=== PATIENT | female | born 1990 | race Caucasian/White ===

== ENCOUNTER 2024-10-15 21:21 | Emergency (ER) | payer MEDICAID, SELFPAY ==
--- OUTSIDE RECORDS SUMMARY | 2024-10-15 21:24 | XMS_ITS | Clinical Summary ---
Author Organization [facility] Address [place], [place] [address] Care Team Providers Care Operations Welder Name Role Phone Chio Husain MD Primary Care Provider Janeth Duong Gmitro MANAGER PHARMACY Unavailable [phone] Unavailable [phone] Allergies Active Allergy Reactions Criticality Noted Date Comments Amoxicillin 05/09/2007 Methylprednisolone Rash 06/13/2011 Sulfa (Sulfonamide Antibiotics) Rash 10/11 Azithromycin Hives 06/13/2011 Medications sertraline (ZOLOFT) 100 mg tabletIndications :Depression, major, single episode, moderate (HC),Anxiety Take 2 Tablets (200 mg) by mouth once daily. 200 Tablet 3 07/23/20 24 Active norgestimate-ethi nyl estradioL (Tri-Sprintec) 0.18/0.215/0.25 mg-35 mcg (28) tabletIndications :Encounter for contraceptive management, unspecified type,Irregular menses Take 1 Tablet by mouth once daily. 84 Tablet 4 07/23/20 24 Active valACYclovir (Valtrex) 500 mg tabletIndications :HSV-2 infection Take 1 Tablet (500 mg) by mouth once daily. 100 Tablet 3 07/23/20 24 Active losartan (COZAAR) 50 mg tabletIndications :HTN (hypertension) Take 1 Tablet (50 mg) by mouth once daily. 30 Tablet 09/30/19 25 Active albuterol HFA (PRO-AIR; VENTOLIN; PROVENTIL) 90 mcg/actuation inhalerIndication s:Cough, unspecified type,Mild asthma with exacerbation, unspecified whether persistent Inhale 1-2 Puffs by mouth every 4 hours if needed for Shortness Of Breath or Wheezing. 1 Each 10/08/19 25 Active losartan (COZAAR) 25 mg tabletIndications :HTN (hypertension) Take 1 Tablet (25 mg) by mouth once daily. 30 Tablet 08/28/20 24 025 Discontinu ed(*Medica tion adjustment ) oseltamivir (TAMIFLU) 75 mg capsuleIndication s:Influenza-like illness,Fever, unspecified fever cause,Cough, unspecified type Take 1 Capsule (75 mg) by mouth two times daily for 5 days. 10 Capsule 10/08/19 25 025 predniSONE (DELTASONE) 20 mg tabletIndications :Cough, unspecified type,Mild asthma with exacerbation, unspecified whether persistent Take 1 Tablet (20 mg) by mouth once daily for 5 days. 5 Tablet 10/08/19 25 025 Active Problems Problem Noted Date Diagnosed Date HTN (hypertension) 08/28/2024 Depression, recurrent 04/27/2024 Anxiety 04/27/2024 Herpes simplex infection of perianal skin 2022 Other acne 04/02/2008 DILMA I (cervical intraepithelial neoplasia I) Overview (07/30/2024): 07/2010 ASCUS/HPV+ 07/2010 [place]: Biopsy DILMA 1, ECC Negative 09/2011 ASCUS/HPV+ 12/2011 [place]: Biopsy DILMA 1, ECC DILMA 1 05/2012 NIL 12/2012 LSIL 04/2014 ASCUS/HPV+ 09/2015 ASCUS/HPV+ 10/2016 ASCUS/HPV+ 03/2017 [place]: ECC Benign 12/2018 ASCUS/HPV+ 03/2020 ASCUS/HPV+ 04/2021 LSIL/HPV+, HPV 16/18 negative 02/2022 [place]: Biopsy DILMA 1, ECC Benign 09/2022 ASCUS/HPV+, HPV 16/18 negative 01/2023 [place]: DILMA 1, ECC Benign 07/2024 NIL/HPV negative. Plan: Pap/HPV due 07/2025. Resolved Problems Problem Noted Date Diagnosed Date Resolved Date Bacterial vaginal infection 11/07/2016 10/09/2022 Overview (11/15/2016): 11/2016: treated Depression with anxiety 11/02/201604/09 Low grade squamous intraepit helial lesion on cytologic smear of cervix (LGSIL) 12/17/20122019 Overview (11/12/2016): 12/17/2012: LSIL (age 22) Vaginal Pap smear with LGSIL 07/10/2010 11/12/2016 Overview (08/08/2010): colp Encounters Date Type Department Care Team Description 10/08/2024 9:55 AM FIELD SALES CONSULTANT Telemedicine [facility] [address] [place] [address] Lauren Ulrich NP Telehealth; Sinus Problem 10/08/2024 Travel 10/07/2024 Travel 10/04/2024 Travel 09/30/2024 1:40 PM FIELD SALES CONSULTANT Office Visit [facility] [address] [place] [address] Chio Husain MD Blood Pressure 09/30/2024 Refill [facility] [address] [place] [address] Chio Husain MD Refill Request (Losartan) 09/30/2024 Travel 09/28/2024 Travel 09/27/2024 Refill [facility] [address] [place] [address] Chio Husain MD Refill Request (Losartan) 09/24/2024 Travel 09/13/2024 Travel 08/28/2024 E-Visit [facility] [address] [place] [address] Chio Husain MD Blood pressure 08/02/2024 Travel 07/25/2024 Refill [facility] [address] [place] [address] Chio Husain MD Refill Request (Sertraline) 07/23/2024 2:00 PM FIELD SALES CONSULTANT Office Visit [facility] [address] [place] [address] Chio Husain MD Physical (With pap); Medication Management 07/23/2024 Travel 07/20/2024 Travel 07/19/2024 Refill [facility] [address] [place] [address] Chio Husain MD Refill Request (Tri-sprintec) from Last 3 Months Immunizations Name Administration Dates Next Due AMB Influenza, IIV3 (Age >=3 years)(Flu Clinic Only) 06/19/2013 AMB Influenza, IIV4 PF (=>6 mos Flulaval,Fluzone Fluarix)(Flu Clinic Only) 06/12/2014 DTP 09/14/1992, 0,1988,09/27,1988 HIB HbOC (HibTITER) 01/22/1990 Hepatitis B (Peds) 06/29/1998,11/24/1997, 997 Human Papilloma Virus Vaccine 04/12/2008, 008,08/07/2007 10/07/2007 Influenza A (H1N1), Inactiva gokul (Age >=3 Years) 08/19/2009 Influenza Virus, Unspecified 06/16/2015 Influenza, IIV3 (Age >=3 years) 08/01/20 11,07/11/2010,08/19/2009,07/21,08/07/2007 Influenza, IIV4 06/22/2019, 8,07/01/2017,07/05 Influenza,CCIIV4 PRESERV FREE 06/11/2020 MMR 04/22/2000,11/20/1989 Oral Polio Vaccine 09/14/1992, 0,1988,07/31 Td (Age >=7 Years) 04/22/2000 Tdap 08/08/2017,10/05/2008 Tuberculin (PPD) 04/21/2013 Family History Medical History Relation Name Comments Anxiety disorder Brother Jeremias Depression Brother Jeremias No Known Problems Daughter Natalie Anxiety disorder Father Hao hooper Depression Father Hao hooper Anxiety disorder Mother Lilly hooper Depression Mother Lilly hooper Anxiety disorder Sister Allyn Asthma Sister Allyn Depression Sister Allyn Cancer-breast No Family History Cancer-colon No Family History Diabetes No Family History Relation Name Status Comments Brother Jeremias Alive Daughter Natalie Alive Father Hao hooper Alive Maternal Grandfather Maternal Grandmother Mother Lilly hooper Alive Paternal Grandfather Paternal Grandmother Alive Sister Allyn Alive Social History Tobacco Use Types Packs/Day Years Used Date Smoking Tobacco: Never Smokeless Tobacco: Never Tobacco Cessation:Counseling Given: Yes Alcohol Use Standard Drinks/Week Comments Yes 1 (1 standard drink = 0.6 oz pur e alcohol) PHQ-2 Answer Date Recorded PHQ-2 TOTAL SCORE 6 07/23/2024 Social Connections Answer Date Recorded Do you often feel lonely or isolated from those around you? 0 09/28/2024 Financial Resource Strain Answer Date R ecorded Difficulty of Paying Living Expenses 3 09/28/2024 Difficulty of Paying Living Expenses Not on file 09/28/2024 Food Insecurity Answer Date Recorded Do you worry your food will run out before you are able to buy more? 1 09/28/2024 Transportation Needs Answer Date Record ed Does lack of transportation keep you from medica l appointments? 1 09/28/2024 Does lack of transportation keep you from work, meetings or getting things that you need? 1 09/28/2024 Housing Stability Answer Date Recorded What is your housing situation today? 1 09/28/2024 Utilities Answer Date Recorded Do you have trouble paying f or utilities (for example, heat, electricity, water, phone)? 1 09/28/2024 Comments No Sex and Gender Information Value Date Recorded Sex Assigned at Female 08/11/2020 9:57 AM FIELD SALES CONSULTANT Legal Sex Female 5:24 AM FIELD SALES CONSULTANT Gender Identity Female 08/11/2020 9:57 AM FIELD SALES CONSULTANT Sexual Orientation Straight 08/11/2020 9: 57 AM FIELD SALES CONSULTANT Occupation Industry Job Start Date Job End Date Unemployed Not on file Not on file Not on file Obstetrics History Para Term AB IAB SAB Ectopic Multiple Livin g Live Births 1 1 1 Date Outcome GA Total Labor Labor/2nd/3rd Weight Sex Type Anes PTL Juliet A1 A5 Name Clin 2005 Term 37w0 d F Mk Estrada Last Filed Vital Signs Vital Sign Reading Time Taken Comments Blood Pressure 138/88 09/30/2024 1:42 PM FIELD SALES CONSULTANT Pulse 108 09/30/2024 1:42 PM FIELD SALES CONSULTANT Temperature 37.1 C (98.8 F) 01/01/2024 12:16 PM CDT Respiratory Rate 16 12/31/2022 7:26 PM CDT Oxygen Saturation 97% 09/30/2024 1:42 PM FIELD SALES CONSULTANT Inhaled Oxygen Concentration - - Weight 105.8 kg (233 lb 4.8 oz) 09/30/2024 1:42 PM FIELD SALES CONSULTANT Height 161 cm (5' 3.39) 07/23/2024 1:57 PM FIELD SALES CONSULTANT Body Mass Index 40.83 07/23/2024 1:57 PM FIELD SALES CONSULTANT Plan of Treatment Upcoming Encounters Date Type Department Care Team (Late st Contact Info) Description 10/28/2024 1:40 PM FIELD SALES CONSULTANT Office Visit [facility] [address] [place] [address] [place] [address] [place] [address] 11/02/2024 2:00 PM FIELD SALES CONSULTANT Telemedicine [address] [place] [address] Emelyn Quiles, LULY [address] [place] [address] [address] [place] [address] 11/03/2024 2:00 PM FIELD SALES CONSULTANT Telemedicine [facility] [address] [place] [id number] Sushma Mccullough, RD [address] [place] [address] Health Maintenance Due Date Last Done Comments COVID-19 vaccine series (2023- season) 2024 Influenza for age 9-49 05/10/2024 , 06/22/2019, 07/03/2018, Additional history exists BMI (ht and wt on same day) for age 18+ 07/23/2025 07/23/2024, 10/09/2022, 02/12/2022, Additional history exists Depression screening for age 12+ 07/23/2025 07/23/2024, 11/07/2023, 11/06/2022, Additional history exists Pap test for age 21-65 07/23/2025 , 02/06/2023 (Verified in Care Everywhere or Patient Record), 10/09/2022, Additional history exists Tetanus booster 08/08/2027 08/08/2017, 09/10, 04/22/2000 Tdap Completed 08/08/2017, 10/05/2008 HIV for age 15-65 Completed 01/15/2023 Hepatitis C screening for age 18-79 Completed 01/15/2023, 10/09/2022 Pneumococcal series for age 6-49 Aged Out No longer eligible based on patient's age to complete this topic Procedures Procedure Name Priority Date/Time Associated Diagnosis Comments BASIC METABOLIC PANEL Routine 09/30/2024 1:51 PM FIELD SALES CONSULTANT HTN (hypertension) CONTROL CENTER OPERATOR THIN PREP PAP AND HPV DNA - AGE 25 AND OVER ([facility]) Routine 07/23/2024 2:30 PM FIELD SALES CONSULTANT Pap smear for cervical cancer screening LIPID PANEL W REFLEX MEASURED LDL Routine 07/23/2024 2:29 PM FIELD SALES CONSULTANT Screening, lipid HEMOGLOBIN A1C Routine 07/23/2024 2:29 PM FIELD SALES CONSULTANT Screening for diabetes mellitus HEMOGLOBIN Routine 07/23/2024 2:29 PM FIELD SALES CONSULTANT Screening, iron deficiency anemia LC HIV-1/O/2, 4TH GENERATION Routine 01/15/2023 1:25 PM CDT Screen for STD (sexually transmitted disease) LC HCV ANTIBODY RFX TO QUANT PCR Routine 01/15/2023 1:25 PM CDT Screen for STD (sexually transmitted disease) from Last 3 Months or Most Recently Relevant to Health Maintenance Results * BASIC METABOLIC PANEL (09/30/2024 1:51 PM FIELD SALES CONSULTANT) Pathologist [facility] GLUCOSE 99 65 - 139 mg/dL [facility] Comment: Non-fasting reference interval UREA NITROGEN (BUN) 11 7 - 25 mg/dL [facility] CREATININE 0.60 0.50 - 0.97 mg/dL [facility] EGFR 119 > OR = 60 mL/min/1. 73m2 [facility] BUN/CREATININE RATIO SEE NOTE: 6 - 22 (calc) [facility] Comment: Not Reported: BUN and Creatinine are within reference range. SODIUM 139 135 - 146 mmol/L [facility] POTASSIUM 4.1 3.5 - 5.3 mmol/L [facility] CHLORIDE 107 98 - 110 mmol/L [facility] CARBON DIOXIDE 25 20 - 32 mmol/L [facility] ELECTROLYTE BALANCE 7 7 - 17 mmol/L (calc) [facility] CALCIUM 9.5 8.6 - 10.2 mg/dL [facility] Blood BLOOD SPECIMEN / Unknown 09/30/2024 1:51 PM FIELD SALES CONSULTANT 09/30/2024 1:52 PM FIELD SALES CONSULTANT Narrative [facility] - 10/01/2024 4:43 AM FIELD SALES CONSULTANT FASTING:NO FASTING: NO Chio Husain MD CHEMISTRY Final R esult [facility] [address] [place] [address], [facility] [address] [place] [address] * CONTROL CENTER OPERATOR THIN PREP PAP AND HPV DNA - AGE 25 AND OVER ([facility]) (07/23/2024 2:30 PM FIELD SALES CONSULTANT) [facility] CLINICAL INFORMATION [facility] Comment: Hx of abnormal Pap/Bx within 3 years High risk HPV Hx/Rx SCREENING PAP LMP [facility] Comment:SEE EPIC PREV. PAP [facility] Comment:10/09/2022 ASCUS, + H PV PREV. BX [facility] Comment:01/2023 SOURCE CONTROL CENTER OPERATOR [facility] Comment:Cervix STATEMENT OF ADEQUACY [facility] Comment: Satisfactory for evaluation. Endocervical/transformation zone component absent. Age and/or menstrual status not provided INTERPRETATION/RESU LT [facility] Comment: Cytology Results: Negative for intraepithelial lesion or malignancy. COMMENT [facility] Comment: This Pap test has been evaluated with computer assisted technology. SENIOR WINDOWS SYSTEMS ENGINEER [facility] Comment: AUC, CT(ASCP) CT Screening location: [address] [address] REVIEW SENIOR WINDOWS SYSTEMS ENGINEER [facility] Comment: [place], CT(ASCP) CT Screening location: [address] [address] THINPREP TIS PAP ALWAYS MESSAGE [facility] Comment: EXPLANATORY NOTE: The Pap is a screening test for cervical cancer. It is not a diagnostic test and is subject to false negative and false positive results. It is most reliable when a satisfactory sample, regularly obtained, is submitted with relevant clinical findings and history, and when the Pap result is evaluated along with historic and current clinical information. HPV HIGH RISK Not Detected NOT DETECTED [facility] Comment: Not Detected High Risk HPV types (16,18,31,33,35,39,45,51,52, 56,58,59,66,68) were not detected. Other HPV types which cause anogenital lesions may be present. The significance of the other types of HPV in malignant processes has not been established. Methodology: Real Time PCR Other (Other) 07/23/2024 2:3 0 PM FIELD SALES CONSULTANT 07/24/2024 5:22 AM FIELD SALES CONSULTANT Narrative [facility][1] - 07/30/2024 2:43 PM FIELD SALES CONSULTANT SPLIT 07/23/2024 FROM [id number] us Chio Husain MD PATHOLOGY/CYTOLOGY Ade l Result [facility] [address] [place] [address], [facility] [address] [place] [address] * HEMOGLOBIN A1C (07/23/2024 2:29 PM FIELD SALES CONSULTANT) HEMOGLOBIN A1C 5.1 <5.7 % of total Hgb [facility] Comment: For the purpose of screening for the presence of diabetes: <5.7% Consistent with the absence of diabetes 5.7-6.4% Consistent with increased risk for diabetes (prediabetes) > or =6.5% Consistent with diabetes This assay result is consistent with a decreased risk of diabetes. Currently, no consensus exists regarding use of hemoglobin A1c for diagnosis of diabetes in children. According to [place] Diabetes Association (ADA) guidelines, hemoglobin A1c <7.0% represents optimal control in non- diabetic patients. Different metrics may apply to specific patient populations. Standards of Medical Care in Diabetes(ADA). Blood BLOOD SPECIMEN / Unknown 07/23/2024 2:29 PM FIELD SALES CONSULTANT 07/23/2024 2:29 PM FIELD SALES CONSULTANT Narrative [facility] - 07/24/2024 6:09 AM FIELD SALES CONSULTANT SPECIMEN COLLECTED AT PROVIDER OFFICE. Chio Husain MD CHEMISTRY Final R esult Performing Organization Address City/[facility]/ZIP Co de Phone Number [facility] [address] [place] [address], [facility] [address] [place] [address] * (ABNORMAL) LIPID PANEL W REFLEX MEASURED LDL (07/23/2024 2:29 PM FIELD SALES CONSULTANT) CHOLESTEROL, TOTAL 253(H) <200 mg/dL [facility] HDL CHOLESTEROL 74 > OR = 50 mg/dL [facility] TRIGLYCERIDES 309(H) <150 mg/dL [facility] Comment: If a non-fasting specimen was collected, consider repeat triglyceride testing on a fasting specimen if clinically indicated. Sugar et al. J. of Clin. Lipidol. 2015;9:129-169. LDL-CHOLESTEROL 135(H) mg/dL (calc) [facility] Comment: Reference range: <100 Desirable range <100 mg/dL for primary prevention; <70 mg/dL for patients with CHD or diabetic patients with > or = 2 CHD risk factors. LDL-C is now calculated using the Pablito-Calix calculation, which is a validated novel method providing better accuracy than the Friedewald equation in the estimation of LDL-C. Pablito GROVER et al. PABLO. 2013;310(19): 0261-2042 (http://education.[employer]/faq/FRJ187) CHOL/HDLC RATIO 3.4 <5.0 (calc) [facility] NON HDL CHOLESTEROL 179(H) <130 mg/dL (calc) [facility] Comment: For patients with diabetes plus 1 major ASCVD risk factor, treating to a non-HDL-C goal of <100 mg/dL (LDL-C of <70 mg/dL) is considered a therapeutic option. Blood BLOOD SPECIMEN / Unknown 07/23/2024 2:29 PM FIELD SALES CONSULTANT 07/23/2024 2:29 PM FIELD SALES CONSULTANT Narrative [facility] - 07/24/2024 6:01 AM FIELD SALES CONSULTANT SPECIMEN COLLECTED AT PROVIDER OFFICE. Chio Husain MD CHEMISTRY Final R esult [facility] [address] [place] [address], [facility] [address] [place] [address] * HEMOGLOBIN (07/23/2024 2:29 PM FIELD SALES CONSULTANT) HEMOGLOBIN 13.0 11.7 - 15.5 g/dL [facility] Blood BLOOD SPECIMEN / Unknown 07/23/2024 2:29 PM FIELD SALES CONSULTANT 07/23/2024 2:29 PM FIELD SALES CONSULTANT Narrative [facility] - 07/24/2024 4:50 AM FIELD SALES CONSULTANT SPECIMEN COLLECTED AT PROVIDER OFFICE. Chio Husain MD HEMATOLOGY Final R esult [facility] [address] [place] [address], [place] [phone] [facility] [address] [place] [address] * LC HCV ANTIBODY RFX TO QUANT PCR (01/15/2023 1:25 PM CDT) Pathologist [facility] HCV Ab Non Reactive Non Reactive 01/18/2023 3:08 AM CDT [facility] ([facility]) Blood BLOOD SPECIMEN / Unknown Venipuncture / Unknown 01/15/2023 1:25 PM CDT 01/15/2023 1:25 PM CDT Narrative [facility] - 01/18/2023 3:08 AM CDT Performed at: [address] [place] [id number] [employer] Wrapper Maker: Crow Acosta MD, Phone: [phone] Chio Husain MD LABORATORY Final R esult [facility]) [address] [place] [id number], * LC HIV-1/O/2, 4TH GENERATION (01/15/2023 1:25 PM CDT) [facility] HIV Scr 4th Gen Non Reactive Non Reactive 01/17/2023 3:10 PM CDT [facility] ([facility]) Comment: HIV Negative HIV-1/HIV-2 antibodies and HIV-1 p24 antigen were NOT detected. There is no laboratory evidence of HIV infection. Blood BLOOD SPECIMEN / Unknown Venipuncture / Unknown 01/15/2023 1:25 PM CDT 01/15/2023 1:25 PM CDT Narrative [facility] ([facility]) - 01/17/2023 3:10 PM CDT Performed at: [address] [id number] [employer] Wrapper Maker: Crow Acosta MD, Phone: [phone] us Chio Husain MD LABORATORY Final R esult [facility]) [facility] [place] [address], from Last 3 Months or Most Recently Relevant to Health Maintenance Insurance ON LICENSE OF [facility] MEDICAID [facility] [employer] Care Teams Operations Welder Relationship Specialty [place] [address] [place] [address] PCP - General Family Practice 12/30/18 Janeth Duong, MANAGER PHARMACY [address] [facility] [address] [place] [address] Clinical Nurse Specialist 10/12/[address] [facility] [address] [place] [address] Material Specialist 10/12/24
[2024-10-15 21:29] VITALS: BP 153/89; PULSE 106; RESP 18; TEMP 36.7; O2SAT 99; BMI 38.1
--- NOTE | 2024-10-15 21:40 | ED.GENADULT ---
HPI - General Adult General Date Seen: 10/15/24 Chief complaint: Ear/Nose/Throat Problem Stated complaint: sore throat Time Seen by Provider: 10/15/24 21:28 History of Present Illness HPI narrative: As patient is a 34-year-old woman who says for the past couple months she has been struggling with cough and cold symptoms. Originally she was diagnosed with a sinus infection and treated with antibiotics. Last week, she said she had fevers, cough, headache and was treated with Tamiflu for influenza. She says that after starting the Tamiflu she felt better, but now she feels like her chest is burning, she feels like she is having problems with wheezing and continues to have a sore throat. She is not running fevers. She does not have any pleuritic chest pain. She does have a history of asthma, uses her inhaler when she is sick and has been using it a couple of times a day over the past week. She does not smoke. Denies other medical history. Related Data Allergies Allergy/AdvReac Type Severity Reaction Status Date / Time amoxicillin AdvReac Severe Anaphylaxis Verified 10/15/24 21:35 Review of Systems Status of ROS: Reports: 6 or more systems reviewed and unremarkable except as noted in History and below Exam Narrative: Exam Narrative: Vital signs reviewed In general, alert, nontoxic woman. She is breathing easily. Voice is normal. Head: Normocephalic, atraumatic. Eyes: Sclera clear. Pupils equal and reactive. ENT: Mucous membranes moist. Throat is normal. No exudate or edema. Neck: Supple without adenopathy. Heart: Regular rate and rhythm without murmur. Lungs: Clear. No increased work of breathing, crackles or wheezes. Extremities: Well perfused, pulses intact. No significant edema. Neurologic: Alert, conversant. Speech fluent, face symmetric. Moves all extremities equally. Skin: Warm, dry well perfused. Affect: Normal. Const: Vital Signs, click to edit/add: Vital Signs - 24 hr 10/15/24 21:29 Temperature 98.0 F Pulse Rate [Right Pulse Oximeter] 106 H Respiratory Rate 18 Blood Pressure [Ri ght Upper Arm] 153/89 H Pulse Oximetry 99 Oxygen Delivery Me thod Room Air Course Course ED Course: Lungs are clear at this time. Vital signs are notable for mild tachycardia with an initial pulse of 106. Normal O2 sats. We can certainly put her on some prednisone to help control bronchospasm at home. Will do a chest x-ray to rule out pneumonia. Otherwise, discussed that influenza may take longer to recover from, and that symptoms are otherwise likely viral. Chest xray by my review is negative. Negative per radiology read as well. Prednisone, primary care follow up next week if not improving. Return at any time for worsening symptoms. Vital Signs Vital signs: Initial Vital Signs Temperature 98.0 F 10/15/24 21:29 Temperature Source Temporal Artery Scan 10/15/24 21:29 Pulse Rate 106 H 10/15/24 21:29 Pulse Rhythm Regular 10/15/24 21:29 Pulse Strength 3+ Normal 10/15/24 21:29 Respiratory Rate 18 10/15/24 21:29 Blood Pressure 153/89 H 10/15/24 21:29 Blood Pressure Mean 110 H 10/15/24 21:29 Blood Pressure Position Sitting 10/15/24 21:29 Pulse Oximetry 99 10/15/24 21:29 Oxygen Delivery Method Room Air 10/15/24 21:29 Vital Signs Temperature 98.0 F 10/15/24 21:29 Pulse Rate 106 H 10/15/24 21:29 Respiratory Rate 18 10/15/24 21:29 Blood Pressure 153/89 H 10/15/24 21:29 Pulse Oximetry 99 10/15/24 21:29 Oxygen Delivery Method Room Air 10/15/24 21:29 Temperature 98.0 F 10/15/24 21:29 Pulse Rate 106 H 10/15/24 21:29 Respiratory Rate 18 10/15/24 21:29 Blood Pressure 153/89 H 10/15/24 21:29 Pulse Oximetry 99 10/15/24 21:29 Oxygen Delivery Method Room Air 10/15/24 21:29 Medical Decision Making Imaging Data Chest x-ray: Attestation: I have reviewed the pertinent imaging results. Radiologist's impression: [place] [address] Diagnostic Imaging Report Patient: Pedro Pablo Hooper MR#: [id number] : 1990 Acct:[id number] Loc: ED Service Date: 10/15/[address]: Ordering Physician: Dorys Kim M.D. Date of Service: 02/06/25 Procedure(s): XR chest 2V Accession Number(s): [id number] cc: Dorys Kim M.D.; Chio Husain M.D.~ For Patients: As a result of the Century Cures Act, medical imaging exams and procedure reports are released immediately into your electronic medical record. You may view this report before your referring provider. If you have questions, please contact your health care provider. INDICATION: Sinus/throat and chest burning for 2 months, cough. TECHNIQUE: Chest 2 view. COMPARISON: None. FINDINGS: Cardiovascular: Heart size and vasculature are normal in caliber and appearance. Lungs and pleural spaces: Low lung volumes with minimal bibasilar atelectasis. No focal consolidation. No sign of pleural effusion. No pneumothorax identified. Bones and soft tissues: No significant findings. IMPRESSION: No acute cardiopulmonary findings. Dictated by Zoe Rapp MD @ 10/15/2024 10:04:03 PM Discharge Plan Discharge Clinical Impression: Upper respiratory infection, Asthma Patient Disposition: Home, Self-Care Condition: Stable Instructions: Viral Syndrome (ED) Additional Instructions: Take prednisone as prescribed. Your chest x-ray is normal, there is no evidence of a pneumonia, and your oxygen levels are normal here. I suspect you will improve over the next few days, but if not, follow up with primary care. Return any time for severe or worsening symptoms. Follow Up/Referrals: Chio Husain MD [Primary Care Provider] - Stand Alone Forms: [employer] Info Instructions
--- OUTSIDE RECORDS SUMMARY | 2024-10-15 21:54 | XMS_ITS | Clinical Summary ---
Author Organization [facility] Address [place], [place] [address] Care Team Providers Care Radiation Engineer Name Role Phone Chio Husain MD Primary Care Provider Janeth Duong Gmitro NURSING SURGICAL SERVICES DIRECTOR Unavailable [phone] Unavailable [phone] Allergies Active Allergy Reactions Criticality Noted Date [...] neoplasia I) Overview (07/30/2024): 07/2010 ASCUS/HPV+ 07/2010 [facility]: Biopsy DILMA 1, ECC Negative 09/2011 ASCUS/HPV+ 12/2011 [place]: Biopsy DILMA 1, ECC DILMA 1 05/2012 NIL 12/2012 LSIL 04/2014 ASCUS/HPV+ 09/2015 ASCUS/HPV+ 10/2016 ASCUS/HPV+ 03/2017 [place]: ECC Benign 12/2018 ASCUS/HPV+ 03/2020 ASCUS/HPV+ 04/2021 LSIL/HPV+, HPV 16/18 negative 02/2022 [place]: Biopsy DILMA 1, ECC Benign 09/2022 ASCUS/HPV+, [...] Department Care Team Description 10/08/2024 9:55 AM PIG MACHINE SUPERVISOR Telemedicine [facility] [address] [place] [address] Lauren Ulrich NP Telehealth; Sinus Problem 10/08/2024 Travel 10/07/2024 Travel 10/04/2024 Travel 09/30/2024 1:40 PM PIG MACHINE SUPERVISOR Office Visit [facility] [address] [place] [address] Chio Husain MD Blood Pressure 09/30/2024 Refill [facility] [address] [place] [address] Chio Husain MD Refill Request (Losartan) 09/30/2024 Travel 09/28/2024 Travel 09/27/2024 Refill [facility] [address] [place] [address] Chio Husain MD Refill Request (Losartan) 09/24/2024 Travel 09/13/2024 Travel 08/28/2024 E-Visit [facility] [address] [place] [address] Chio Husain MD Blood pressure 08/02/2024 Travel 07/25/2024 Refill [facility] [address] [place] [address] Chio Husain MD Refill Request (Sertraline) 07/23/2024 2:00 PM PIG MACHINE SUPERVISOR Office Visit [facility] [address] [place] [address] Chio Husain MD Physical (With pap); Medication Management 07/23/2024 Travel 07/20/2024 Travel 07/19/2024 Refill [facility] [address] [place] [address] Chio Husain MD Refill Request (Tri-sprintec) from [...] Sex Assigned at Female 08/11/2020 9:57 AM PIG MACHINE SUPERVISOR Legal Sex Female 5:24 AM PIG MACHINE SUPERVISOR Gender Identity Female 08/11/2020 9:57 AM PIG MACHINE SUPERVISOR Sexual Orientation Straight 08/11/2020 9: 57 AM PIG MACHINE SUPERVISOR Occupation Industry Job Start Date Job End [...] Comments Blood Pressure 138/88 09/30/2024 1:42 PM PIG MACHINE SUPERVISOR Pulse 108 09/30/2024 1:42 PM PIG MACHINE SUPERVISOR Temperature 37.1 C (98.8 F) 01/01/2024 12:16 PM CDT Respiratory Rate 16 12/31/2022 7:26 PM CDT Oxygen Saturation 97% 09/30/2024 1:42 PM PIG MACHINE SUPERVISOR Inhaled Oxygen Concentration - - Weight 105.8 kg (233 lb 4.8 oz) 09/30/2024 1:42 PM PIG MACHINE SUPERVISOR Height 161 cm (5' 3.39) 07/23/2024 1:57 PM PIG MACHINE SUPERVISOR Body Mass Index 40.83 07/23/2024 1:57 PM PIG MACHINE SUPERVISOR Plan of Treatment Upcoming Encounters Date Type Department Care Team (Late st Contact Info) Description 10/28/2024 1:40 PM PIG MACHINE SUPERVISOR Office Visit [facility] [address] [place] [address] [place] [address] [place] [address] 11/02/2024 2:00 PM PIG MACHINE SUPERVISOR Telemedicine [address] [place] [address] Emelyn Quiles, LULY [address] [place] [address] [address] [place] [address] 11/03/2024 2:00 PM PIG MACHINE SUPERVISOR Telemedicine [facility] [address] [place] [phone] Sushma Mccullough, RD [address] [place] [address] Health Maintenance Due Date Last Done Comments [...] BASIC METABOLIC PANEL Routine 09/30/2024 1:51 PM PIG MACHINE SUPERVISOR HTN (hypertension) CONTACT CENTER ASSISTANT THIN PREP PAP AND HPV DNA - AGE 25 AND OVER ([facility]) Routine 07/23/2024 2:30 PM PIG MACHINE SUPERVISOR Pap smear for cervical cancer screening LIPID PANEL W REFLEX MEASURED LDL Routine 07/23/2024 2:29 PM PIG MACHINE SUPERVISOR Screening, lipid HEMOGLOBIN A1C Routine 07/23/2024 2:29 PM PIG MACHINE SUPERVISOR Screening for diabetes mellitus HEMOGLOBIN Routine 07/23/2024 2:29 PM PIG MACHINE SUPERVISOR Screening, iron deficiency anemia LC HIV-1/O/2, 4TH GENERATION Routine 01/15/2023 1:25 PM CDT Screen for STD (sexually transmitted disease) LC HCV ANTIBODY RFX TO QUANT PCR Routine 01/15/2023 1:25 PM CDT Screen for STD (sexually transmitted disease) from Last 3 Months or Most Recently Relevant to Health Maintenance Results * BASIC METABOLIC PANEL (09/30/2024 1:51 PM PIG MACHINE SUPERVISOR) Pathologist [facility] GLUCOSE 99 65 - 139 mg/dL [facility] Comment: Non-fasting reference interval UREA NITROGEN (BUN) 11 7 - 25 mg/dL [facility] CREATININE 0.60 0.50 - 0.97 mg/dL [facility] EGFR 119 > OR = 60 mL/min/1. 73m2 [facility] BUN/CREATININE RATIO SEE NOTE: 6 - 22 (calc) [facility] Comment: Not Reported: BUN and Creatinine are within reference range. SODIUM 139 135 - 146 mmol/L [facility] POTASSIUM 4.1 3.5 - 5.3 mmol/L [facility] CHLORIDE 107 98 - 110 mmol/L [facility] CARBON DIOXIDE 25 20 - 32 mmol/L [facility] ELECTROLYTE BALANCE 7 7 - 17 mmol/L (calc) [facility] CALCIUM 9.5 8.6 - 10.2 mg/dL [facility] Blood BLOOD SPECIMEN / Unknown 09/30/2024 1:51 PM PIG MACHINE SUPERVISOR 09/30/2024 1:52 PM PIG MACHINE SUPERVISOR Narrative [facility] - 10/01/2024 4:43 AM PIG MACHINE SUPERVISOR FASTING:NO FASTING: NO Chio Husain MD CHEMISTRY Final R esult [facility] [address] [place] [address], [facility] [address] [place] [address] * CONTACT CENTER ASSISTANT THIN PREP PAP AND HPV DNA - AGE 25 AND OVER ([facility]) (07/23/2024 2:30 PM PIG MACHINE SUPERVISOR) [facility] CLINICAL INFORMATION [facility] Comment: Hx of abnormal Pap/Bx within 3 years High risk HPV Hx/Rx SCREENING PAP LMP [facility] Comment:SEE EPIC PREV. PAP [facility] Comment:10/09/2022 ASCUS, + H PV PREV. BX [facility] Comment:01/2023 SOURCE CONTACT CENTER ASSISTANT [facility] Comment:Cervix STATEMENT OF ADEQUACY [facility] Comment: Satisfactory for evaluation. Endocervical/transformation zone component absent. Age and/or menstrual status not provided INTERPRETATION/RESU LT [facility] Comment: Cytology Results: Negative for intraepithelial lesion or malignancy. COMMENT [facility] Comment: This Pap test has been evaluated with computer assisted technology. BULLET ASSEMBLY PRESS OPERATOR [facility] Comment: AUC, CT(ASCP) CT Screening location: [address] [address] REVIEW BULLET ASSEMBLY PRESS OPERATOR [facility] Comment: EL[place], CT(ASCP) CT Screening location: [address] [address] THINPREP TIS PAP ALWAYS MESSAGE [facility] Comment: EXPLANATORY NOTE: The Pap is a [...] HPV HIGH RISK Not Detected NOT DETECTED [facility] Comment: Not Detected High Risk HPV types (16,18,31,33,35,39,45,51,52, 56,58,59,66,68) were not detected. Other HPV types which cause anogenital lesions may be present. The significance of the other types of HPV in malignant processes has not been established. Methodology: Real Time PCR Other (Other) 07/23/2024 2:3 0 PM PIG MACHINE SUPERVISOR 07/24/2024 5:22 AM PIG MACHINE SUPERVISOR Narrative [facility] - 07/30/2024 2:43 PM PIG MACHINE SUPERVISOR SPLIT 07/23/2024 FROM [id number] us Chio Husain MD PATHOLOGY/CYTOLOGY Ade l Result [facility] [address] [place] [address], [facility] [address] [place] [address] * HEMOGLOBIN A1C (07/23/2024 2:29 PM PIG MACHINE SUPERVISOR) HEMOGLOBIN A1C 5.1 <5.7 % of total [...] diagnosis of diabetes in children. According to [place] Diabetes Association (ADA) guidelines, hemoglobin A1c <7.0% represents optimal control in non- diabetic patients. Different metrics may apply to specific patient populations. Standards of Medical Care in Diabetes(ADA). Blood BLOOD SPECIMEN / Unknown 07/23/2024 2:29 PM PIG MACHINE SUPERVISOR 07/23/2024 2:29 PM PIG MACHINE SUPERVISOR Narrative [facility] - 07/24/2024 6:09 AM PIG MACHINE SUPERVISOR SPECIMEN COLLECTED AT PROVIDER OFFICE. Chio Husain MD CHEMISTRY Final R esult Performing Organization Address City/[facility]/ZIP Co de Phone Number [facility] [address] [place] [address], [facility] [address] [place] [address] * (ABNORMAL) LIPID PANEL W REFLEX MEASURED LDL (07/23/2024 2:29 PM PIG MACHINE SUPERVISOR) CHOLESTEROL, TOTAL 253(H) <200 mg/dL [facility] HDL CHOLESTEROL 74 > OR = 50 mg/dL [facility] TRIGLYCERIDES 309(H) <150 mg/dL [facility] Comment: If a non-fasting specimen was collected, consider repeat triglyceride testing on a fasting specimen if clinically indicated. Sugar et al. J. of Clin. Lipidol. 2015;9:129-169. LDL-CHOLESTEROL 135(H) mg/dL (calc) [facility] Comment: Reference range: <100 Desirable range <100 mg/dL for primary prevention; <70 mg/dL for patients with CHD or diabetic patients with > or = 2 CHD risk factors. LDL-C is now calculated using the Pablito-Calix calculation, which is a validated novel method providing better accuracy than the Friedewald equation in the estimation of LDL-C. Pablito GROVER et al. PABLO. 2013;310(19): 2493-1291 (http://education.BioAnalytix/faq/BSO924) CHOL/HDLC RATIO 3.4 <5.0 (calc) [facility] NON HDL CHOLESTEROL 179(H) <130 mg/dL (calc) [facility] Comment: For patients with diabetes plus 1 major ASCVD risk factor, treating to a non-HDL-C goal of <100 mg/dL (LDL-C of <70 mg/dL) is considered a therapeutic option. Blood BLOOD SPECIMEN / Unknown 07/23/2024 2:29 PM PIG MACHINE SUPERVISOR 07/23/2024 2:29 PM PIG MACHINE SUPERVISOR Narrative [facility] - 07/24/2024 6:01 AM PIG MACHINE SUPERVISOR SPECIMEN COLLECTED AT PROVIDER OFFICE. Chio Husain MD CHEMISTRY Final R esult [facility] [address] [place] [address], [facility] [address] [place] [address] * HEMOGLOBIN (07/23/2024 2:29 PM PIG MACHINE SUPERVISOR) HEMOGLOBIN 13.0 11.7 - 15.5 g/dL [facility] Blood BLOOD SPECIMEN / Unknown 07/23/2024 2:29 PM PIG MACHINE SUPERVISOR 07/23/2024 2:29 PM PIG MACHINE SUPERVISOR Narrative [facility] - 07/24/2024 4:50 AM PIG MACHINE SUPERVISOR SPECIMEN COLLECTED AT PROVIDER OFFICE. Chio Husain MD HEMATOLOGY Final R esult [facility] [address] [place] [address], [place] [phone] [facility] [address] [place] [address] * LC HCV ANTIBODY RFX TO QUANT PCR (01/15/2023 1:25 PM CDT) Pathologist [facility] HCV Ab Non Reactive Non Reactive 01/18/2023 3:08 AM CDT [facility] Blood BLOOD SPECIMEN / Unknown Venipuncture / Unknown 01/15/2023 1:25 PM CDT 01/15/2023 1:25 PM CDT Narrative [facility] - 01/18/2023 3:08 AM CDT Performed at: [address] [place] [id number] Rodent Control Worker: Crow Acosta MD, Phone: [phone] Chio Husain MD LABORATORY Final R esult [facility] ([facility]) [address] [place] [id number], * LC HIV-1/O/2, 4TH GENERATION (01/15/2023 1:25 PM CDT) [facility] HIV Scr 4th Gen Non Reactive Non Reactive 01/17/2023 3:10 PM CDT [facility] Comment: HIV Negative HIV-1/HIV-2 antibodies and HIV-1 p24 antigen were NOT detected. There is no laboratory evidence of HIV infection. Blood BLOOD SPECIMEN / Unknown Venipuncture / Unknown 01/15/2023 1:25 PM CDT 01/15/2023 1:[address] [facility] - 01/17/2023 3:10 PM CDT Performed at: [address] [id number] Rodent Control Worker: Crow Acosta MD, Phone: [phone] us Chio Husain MD LABORATORY Final R esult [facility] [place] [address], from Last 3 Months or Most Recently Relevant to Health Maintenance Insurance [facility] [employer] [facility] [employer] Care Teams Radiation Engineer Relationship Specialty [place] [address] [place] [address] PCP - General Family Practice 12/30/18 Janeth Duong, NURSING SURGICAL SERVICES DIRECTOR [address] [facility] [address] [place] [address] Clinical Nurse Specialist 10/12/[address] [facility] [address] [place] [address] Title Officer 10/12/24
== END 2024-10-15 22:14 | disposition home or self-care (01) ==
PROVIDERS: Emergency Provider Emergency Medicine; PCP Family Medicine
DX: J06.9 Acute upper respiratory infection, unspecified (principal); J45.909 Unspecified asthma, uncomplicated
CPT/HCPCS: 71046; 99283; 99284